=== PATIENT | male | born 1970 | race Caucasian/White ===

== ENCOUNTER → 2018-06-04 10:01 | Outpatient (CLI) | payer OTHER, SELFPAY ==
--- NOTE | 2018-06-04 10:10 | DI.RAD.S_ITS ---
PROCEDURE: XR CERVICAL SPINE 4V OR 5V INDICATIONS: Cervical spondylosis TECHNIQUE: 5 views of the cervical spine acquired. COMPARISON: None. FINDINGS: Bones: No fractures or dislocations to the T1 level. There is moderate degenerative disc at C5-C6 and C6-7. Oblique images demonstrate mild bony foraminal stenoses at C5-C6 and C6-7 bilaterally. Soft tissues: No prevertebral soft tissue swelling. IMPRESSION: 1. Moderate degenerative disc disease at C5-C6 and C6-C7. 2. Mild bilateral foraminal stenosis at C5-C6 and C6-C7. Dictated by: Hamzah Mejia M.D. on 06/04/2018 at 10:41 Approved by: Hamzah Mejia M.D. on 06/04/2018 at 10:43
== END ==
PROVIDERS: PCP Registered Nurse; Visit Provider Physical Medicine & Rehabilitation
DX: M47.22 Other spondylosis with radiculopathy, cervical region (principal); M50.122 Cervical disc disorder at C5-C6 level with radiculopathy; M48.02 Spinal stenosis, cervical region
CPT/HCPCS: 72050

== ENCOUNTER 2018-08-20 09:36 | Outpatient (CLI) | payer OTHER, SELFPAY ==
[2018-08-20] VITALS (17 sets, daily range): BP systolic 75–116; BP diastolic 44–73; PULSE 43–86; RESP 16–18; TEMP 36.6; O2SAT 93–98
--- NOTE | 2018-08-20 09:39 | DI.RAD.S_ITS ---
PROCEDURE: PAIN C/T FACET INJ/BLK 1ST L INDICATIONS: SPONDYLOSIS FINDINGS: Fluoroscopic spot filming was performed to verify placement of spinal needles at the C5-6 and C6-7 right-sided level(s), as labeled on the films. Appropriate location(s) of the needle tip(s) was confirmed by injection of iodinated contrast. IMPRESSION: Successful cervical C5-6 and C6-7 right-sided needle tip localization for facet steroid injection. Dictated by: Sharif Cespedes M.D. on 08/20/2018 at 11:27 Approved by: Sharif Cespedes M.D. on 08/20/2018 at 11:28
[2018-08-20] MEDS: fentaNYL 100 MCG/2 ML INJ 50 MCG IV (10:25)
[2018-08-20] MEDS: MIDAZOLAM 5 MG/5 ML VIAL IV (10:25)
[2018-08-20] MEDS: DEXAMETHASONE 10 MG/ML VIAL 20 MG INJ (10:30)
[2018-08-20] MEDS: IOPAMIDOL 15 ML VIAL 3 ML INJ (10:30)
[2018-08-20] MEDS: BUPIVACAINE 0.5% (PF) VIAL 2 ML INJ (10:30)
--- NOTE | 2018-08-20 10:37 | PC.NURSE ---
pt tolerated procedure well. Able to get off table with 2 person standby assist. Transferred pt via wheelchair to pre procedure room for continued monitoring with Aurelia SHAFER.
--- NOTE | 2018-08-20 10:44 | P.PCN_ITS ---
Procedures Date/Time Date of procedure: 08/20/18 Time of procedure: 10:43 General Procedure description: PREOP DIAGNOSIS 1. FACET ARTHROPATHY 2. AXIAL NECK PAIN POST OP DIAGNOSIS 1. FACET ARTHROPATHY 2. AXIAL NECK PAIN PROCEDURES 1. FLUOROSCOPICALLY GUIDED, CONTRAST-CONTROLLED RIGHT C5/6 AND C6/7 FACET JOINT INJECTIONS WITH CONSCIOUS SEDATION. PHYSICIAN: Maged Masterson, DO INDICATIONS Helder is referred by TODD Grace for treatment of Axial Neck Pain DESCRIPTION OF PROCEDURE Fluoroscopically guided, contrast-controlled right C5/6 and C6/7 facet joint injections with conscious sedation. Following denial of allergy and review of potential side effects and complications, including, but not necessarily limited to, infection, allergic reaction, local tissue breakdown, stroke, temporary or permanent nerve injury and paralysis, the patient indicated that the patient understood and agreed to proceed. An informed consent document was signed by the patient, witnessed by a nurse, and placed in the patient's chart. Additionally, other treatment options including medications, modalities, and physical therapy were reviewed with the patient. After review of previous anaesthesic history and IV conscious sedation the ranjeet ent was deemed safe to proceed with todays procedure with IV conscious sedation as ASA class II designation. Safety time-out was performed to confirm patient ID, procedure to be performed and site of procedure. IV sedation was accomplished with a combination of 3mg of Versed and 50mcg Fentanyl was administered by the RN after DO order, titrated to patient comfort during the course of the procedure while the patient remained responsive to all verbal commands. In the prone position, following sterile prep and drape of the cervical spine region, the posterior aspect of the right C5/6 and C6/7 facet joints were identified fluoroscopically. The skin was anesthetized via a 25-gauge 1.5-inch needle with 1% lidocaine solution into the corresponding facet joints. At this point, a 25-gauge 2.5-inch spinal needle was atraumatically introduced and advanced under fluoroscopic guidance into the corresponding facet joints. Following negative aspiration, injections of approximately 0.2-cc of Isovue 200 confirmed interarticular placement without vascular uptake. At this point, a total of 1 cc including 0.5 cc or 5 mg of dexamethasone combined with 0.5 cc of 1% lidocaine solution was injected without complication into each of the corresponding facet joints. The procedure tolerated the procedure well without signs or symptoms of complications prior to transfer to the recovery area continued monitoring without incident. The patient was then transferred to the recovery area where they were observed for an appropriate period of time after the injection. The patient reported a VAS score of 7 prior to the procedure and a post- procedure VAS of 0. Total Fluoroscopy Time: 20.5 seconds Total Conscious Sedation Time: 24 min POST OP INSTRUCTIONS They were provided a Pain Log to continue to record their response to the target-specific procedure prior to their follow-up visit with their referring physician. Additionally, specific post-injection care instructions and a cont act number to our office were provided if concerns arise regarding possible complications associated with the procedure are suspected. Maged Masterson DO
--- NOTE | 2018-08-20 10:48 | PC.NURSE ---
ACCEPTED CARE OF PT IN POST PROC AREA IN STABLE CONDITION
--- NOTE | 2018-08-20 10:55 | PC.NURSE ---
LOW BP NOTED OF 82/47, PT IN AROUSABLE UPON CALLING, FOLLOWS COMMANDS APPROPRIATELY AND A&0X4. ALL OTHER VSS. WILL CONTINUE TO MONITOR.
--- NOTE | 2018-08-20 12:11 | PC.NURSE ---
PT NOW AWAKE, A&OX4, ALL VSS AND STEADY ON FEET.
== END 2018-08-20 12:13 | disposition home or self-care (01) ==
LOC: RAD 09:37
PROVIDERS: PCP Registered Nurse; Visit Provider Physical Medicine & Rehabilitation
DX: M47.812 Spondylosis without myelopathy or radiculopathy, cervical region (principal); M54.2 Cervicalgia
CPT/HCPCS: 64490; 64491; 64494; 99152; J1100; J2250; J3010

== ENCOUNTER → 2018-10-07 10:07 | Outpatient (CLI) | payer OTHER, SELFPAY ==
--- NOTE | 2018-10-07 10:09 | DI.RAD.S_ITS ---
PROCEDURE: XR KNEE RT 3V INDICATIONS: Knee pain - right sided TECHNIQUE: 3 views of the knee were acquired. COMPARISON: None. FINDINGS: Bones: No fractures or dislocations. No suspicious bony lesions. Soft tissues: No joint effusion. No suspicious soft tissue calcifications. IMPRESSION: No trauma. Source of knee pain is not identified. Dictated by: Sharif Cespedes M.D. on 10/07/2018 at 12:25 Approved by: Sharif Cespedes M.D. on 10/07/2018 at 12:26
--- NOTE | 2018-10-07 10:09 | DI.RAD.S_ITS ---
PROCEDURE: XR KNEE LT 3V INDICATIONS: Knee pain - left sided TECHNIQUE: 3 views of the knee were acquired. COMPARISON: None. FINDINGS: Bones: No fractures or dislocations. No suspicious bony lesions. Soft tissues: No joint effusion. No suspicious soft tissue calcifications. IMPRESSION: Minimal narrowing of the medial compartment knee joint width, without intra-articular loose body or joint effusion. Minimal osteoarthritis appears present. Dictated by: Sharif Cespedes M.D. on 10/07/2018 at 12:26 Approved by: Sharif Cespedes M.D. on 10/07/2018 at 12:26
== END ==
PROVIDERS: PCP Registered Nurse; Visit Provider Physical Medicine & Rehabilitation
DX: M25.561 Pain in right knee (principal); M25.562 Pain in left knee
CPT/HCPCS: 73562

== ENCOUNTER → 2023-07-23 14:36 | Outpatient (CLI) | payer OTHER, SELFPAY ==
--- NOTE | 2023-07-23 14:39 | DI.RAD.S_ITS ---
PROCEDURE: XR CERVICAL SPINE 4V OR 5V INDICATIONS: NECK PAIN TECHNIQUE: 5 views of the cervical spine acquired. COMPARISON: [facility], CR, XR CERVICAL SPINE 4V OR 5V, 06/04/2018, 10:07. FINDINGS: Bones: [id number] degenerative changes. There is straightening of the normal cervical lordosis. Vertebral body heights are well maintained. Overall findings are similar compared to 2019 imaging. Possible minimal to mild neural foraminal narrowing bilaterally on oblique views at C3-C6. Soft tissues: No pathologic prevertebral soft tissue swelling. IMPRESSION: [id number]-[id number] degenerative changes, similar compared to 2019. No acute changes. If there is high concern for further derangement, consider MRI evaluation. Dictated by: Luis Felipe Salvador M.D. on 07/23/2023 at 15:56 Approved by: Luis Felipe Salvador M.D. on 07/23/2023 at 15:58
--- NOTE | 2023-07-23 14:39 | DI.RAD.S_ITS ---
PROCEDURE: XR KNEE LT 3V INDICATIONS: LEFT KNEE PAIN TECHNIQUE: 3 views of the knee were acquired. COMPARISON: [facility], AUTUMN, XR KNEE LT 3V, 10/07/2018, 10:27. [facility], CR, XR KNEE RT 3V, 10/07/2018, 10:27. FINDINGS: Bones: Minimal degenerative changes. No acute fracture or dislocation. Soft tissues: Possible trace joint effusion IMPRESSION: Minimal degenerative changes. No acute radiographic abnormality. If there is high concern for further derangement, consider MRI evaluation. Dictated by: Luis Felipe Salvador M.D. on 07/23/2023 at 15:59 Approved by: Luis Felipe Salvador M.D. on 07/23/2023 at 15:59
--- NOTE | 2023-07-23 14:39 | DI.RAD.S_ITS ---
PROCEDURE: XR KNEE RT 3V INDICATIONS: RIGHT KNEE PAIN TECHNIQUE: 3 views of the knee were acquired. COMPARISON: [facility], CR, XR KNEE RT 3V, 10/07/2018, 10:27. FINDINGS: Bones: Mild degenerative changes. No acute fracture or dislocation. There is slight patellar tilt. Soft tissues: Possible trace joint fluid. IMPRESSION: Mild degenerative changes with slight patellar tilt. Possible trace joint effusion. No acute fracture. If there is high concern for further derangement, consider MRI evaluation. Dictated by: Luis Felipe Salvador M.D. on 07/23/2023 at 16:00 Approved by: Luis Felipe Salvador M.D. on 07/23/2023 at 16:01
== END ==
PROVIDERS: PCP Registered Nurse; Referring Provider Physical Medicine & Rehabilitation; Visit Provider Physical Medicine & Rehabilitation
DX: M17.10 Unilateral primary osteoarthritis, unspecified knee (principal); M25.561 Pain in right knee; M25.562 Pain in left knee; M47.22 Other spondylosis with radiculopathy, cervical region
CPT/HCPCS: 72050; 73562